=== PATIENT | male | born 1995 | race Two or more races ===

== ENCOUNTER 2024-05-22 13:11 | Emergency (ER) | payer BC ==
[~2024-05-22] VITALS: Ht 182.9 cm; Wt 77.1 kg
[2024-05-22] MEDS ORDERED: IBUPROFEN 600 MG TABLET ONE ×2 (14:01→14:02)
[2024-05-22] MEDS: IBUPROFEN 600 MG TABLET PO ONE (14:05)
[2024-05-22] MEDS ORDERED: IBUP-1955 PO (14:31)
[2024-05-22] MEDS ORDERED: BACI/NEOM/POLY B OINT PKT 1 UDPKT PACKET ONE (14:56)
[2024-05-22] MEDS: BACI/NEOM/POLY B OINT PKT 1 UDPKT PACKET TP ONE (14:59)
[2024-05-22 15:44] VITALS: BP 124/78; TEMP 98.5; O2SAT 98
== END 2024-05-22 15:44 | disposition home or self-care (01) ==
LOC: ER 13:18
DX: S00.83XA Contusion of other part of head, initial encounter (principal); S00.81XA Abrasion of other part of head, initial encounter; W50.0XXA Accidental hit or strike by another person, initial encounter; Y93.67 Activity, basketball; Y93.89 Activity, other specified; Y92.89 Other specified places as the place of occurrence of the external cause; Y99.8 Other external cause status
CPT/HCPCS: 70110-TC